=== PATIENT | female | born 1955 | race Asian ===

== ENCOUNTER 2021-08-14 10:51 | Outpatient (CLI) | payer OTHER ==
[2021-08-14] MEDS ORDERED: GADOTERATE MEGLUMINE 7.5 MMOL/15 ML VIAL IV ONE (11:32)
== END 2021-08-14 19:55 | disposition home or self-care (01) ==
LOC: SMI 10:51
PROVIDERS: ATTEND Psychiatry & Neurology Neurology
DX: R90.82 White matter disease, unspecified (principal); R25.8 Other abnormal involuntary movements; Z86.69 Personal history of other diseases of the nervous system and sense organs
CPT/HCPCS: 70553; A9575